=== PATIENT | male | born 2000 | race Hispanic/Latino ===

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

== ENCOUNTER 2023-02-07 18:59 | Emergency (ER) | payer OTHER, SELFPAY ==
[2023-02-07] MEDS ORDERED: Lidocaine 1% w/Epinephrine 1:100K 20 ML VIAL ONE (19:42)
[2023-02-07] MEDS ORDERED: Bupivacaine 0.25% 10 ML VIAL ONE (19:42)
[2023-02-07] MEDS ORDERED: Boostrix 0.5 ML (Tdap) VIAL (>/=7 yrs of age) ONE (19:42)
[2023-02-07] MEDS ORDERED: Ondansetron ODT 4 MG TAB ONE (20:02)
[2023-02-07] MEDS ORDERED: Bacitracin 1 PK ONE (20:25)
[2023-02-07] MEDS ORDERED: Lidocaine 1% MPF 2 ML VIAL ONE (21:06)
[2023-02-07] MEDS ORDERED: cefTRIAXone (ROCEPHIN) 1 GM VIAL ONE (21:07)
== END 2023-02-07 21:24 | disposition home or self-care (01) ==
LOC: ERS 18:59
DX: S62.632A Displaced fracture of distal phalanx of right middle finger, initial encounter for closed fracture (principal); S61.212A Laceration without foreign body of right middle finger without damage to nail, initial encounter; W31.89XA Contact with other specified machinery, initial encounter; Y92.89 Other specified places as the place of occurrence of the external cause; Y99.0 Civilian activity done for income or pay
CPT/HCPCS: 12001; 90471; 90715; 96372; J0696; Q0162; S0020